=== PATIENT | male | born 2000 | race African-American/Black ===

== ENCOUNTER 2024-03-04 12:10 | Emergency (ER) | payer OTHER ==
[~2024-03-04] VITALS: Ht 182.8 cm; Wt 97.5 kg
[2024-03-04] MEDS ORDERED: predniSONE 20 MG TAB PO ONE (12:50)
[2024-03-04] MEDS ORDERED: PREDNISONE20 M1 PO (12:52)
[2024-03-04] MEDS ORDERED: VENT7GM INH (12:52)
[2024-03-04] MEDS ORDERED: Albuterol Sulf/Ipratropium 3 ML VIAL NEB SCH (13:00)
== END 2024-03-04 13:00 | disposition home or self-care (01) ==
LOC: ED 12:10
DX: J45.909 Unspecified asthma, uncomplicated (principal)